=== PATIENT | male | born 1975 | race Caucasian/White ===

== ENCOUNTER → 2018-07-17 | Outpatient (CLI) | payer BC ==
--- NOTE | 2018-07-17 17:10 | CONS ---
CONSULTATION DATE OF SURGERY: 07/17/2018 43-year-old gentleman has been evaluated in [facility] for possible obstructive sleep apnea-hypopnea syndrome. HISTORY OF PRESENT ILLNESS/SLEEP-WAKE EVALUATION: Patient usual sleep schedule on working days from 10:30 or 11:00 p.m. until 5:30 a.m. and on weekend until 6:00 a.m. No problems with falling asleep. No TV in bedroom. The patient sleeps in different positions with his with loud snoring and witnessed episodes of stopped breathing during the sleep. The patient wakes up from sleep around 3 times with nocturia and grinding teeth. In the morning patient wakes up tired, has problem with memory, concentration and irritability. [place] Sleepiness Scale is 4. PAST MEDICAL HISTORY: Positive for seasonal allergies with sometimes some plugging of his nose. PAST SURGICAL HISTORY: Right and left knee surgery. Hernia repair. MEDICATIONS: None at the present time. SOCIAL HISTORY: Negative for smoking. Alcohol consumption occasional. FAMILY HISTORY: Diabetes. REVIEW OF SYSTEMS: Sometimes awakenings from sleep. Episodes of fatigue. PHYSICAL EXAM: GENERAL gentleman without distress. VITAL SIGNS BP 123/75, HR 60, RR 16, height 6 foot 0, weight 206, BMI 27.9, temp 97.8. Oxygen saturation on room air 97.6% HEENT PERRLA, EOMI, evaluation of oropharynx showed low position of soft palate, slight restriction of nasal breathing bilaterally. Neck 15-3/4 inches in circumference. NECK Supple, no JVD. Thyroid is not palpable. LUNGS Clear to percussion and to auscultation. Good air exchange. No wheezing or rhonchi. HEART S1, S2 regular. No murmurs, gallops, or rubs. ABDOMEN Soft and nontender. Bowel sounds are present. No organomegaly appreciated. EXTREMITIES No clubbing or cyanosis. 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 Cranial nerves 2 to 7 intact. There is no fasciculation or atrophy. noted. No focal deficits observed. IMPRESSION: 1. Snoring, witnessed episodes of stopped breathing during the sleep, low position of soft palate, obstructive sleep apnea-hypopnea syndrome. 2. Status post right knee surgery. 3. Status post left knee surgery. 4. Status post hernia repair. 5. History of seasonal allergies. 6. Some restriction of nasal breathing. PLAN: 1. Sleep study for evaluation of patient breathing during the sleep. 2. Treatment with CPAP, if necessary CPAP titration if sleep study will be positive for obstructive sleep apnea-hypopnea syndrome. 3. Preferable position during sleep on the side. 4. No driving if patient feels any sleepiness. 5. I will see patient for follow up visit to explain results of testing and following plan. Thank you very much for referring this patient for consultation. Sincerely, Marek Grimm MD, PhD, FAASM Diplomat of [employer] Assistant Softball Coach of [facility] [place] MMODL / IJN: [id number] /
== END | disposition home or self-care (01) ==
LOC: SLEEP 16:15
PROVIDERS: ATTEND Internal Medicine
DX: G47.33 Obstructive sleep apnea (adult) (pediatric) (principal); M27.8 Other specified diseases of jaws; R35.1 Nocturia; Z98.890 Other specified postprocedural states; Z91.048 Other nonmedicinal substance allergy status
CPT/HCPCS: 99211

== ENCOUNTER → 2022-01-31 | Outpatient (CLI) | payer BC ==
--- NOTE | 2022-01-31 17:37 | CONS ---
CONSULTATION DATE OF SERVICE: 01/31/2022 This 46-year-old gentleman has been evaluated in Sleep Center for obstructive sleep apnea-hypopnea syndrome. HISTORY OF PRESENT ILLNESS/SLEEP-WAKE EVALUATION: I saw this patient in 2018. At that time we did a home sleep apnea test, and the test showed moderate obstructive sleep apnea-hypopnea syndrome. Then patient was started on treatment with CPAP but was not able to use CPAP equipment. At that time he used a full- face mask. He returned his CPAP unit because he did not use it. He did not come for a follow-up visit at that time, either. If he had come, we might possibly have been able to make some corrections and make it more comfortable for the patient. At present, his sleep schedule on weekdays is from 9:30 p.m. until 5 or 5:30 a.m. and on weekends from 10 p.m. to 6 or 6:30 a.m. No problems with falling asleep. No TV in bedroom. He sleeps in different positions. He snores, has episodes of stopped breathing during sleep. He wakes up from sleep twice with nocturia, grinding teeth, dry mouth. No history of hypnagogic hallucinations, sleep paralysis or cataplexy. In the morning the patient wakes up tired, has difficulties paying attention, has problems with memory, concentration, irritability. [place] Sleepiness Scale is 8. Usually he does not take any naps. PAST MEDICAL HISTORY: Positive for seasonal allergies. PAST SURGICAL HISTORY: Right knee replacement, left knee replacement. MEDICATIONS: None. SOCIAL HISTORY: Negative for smoking. Alcohol consumption occasional. FAMILY HISTORY: Hypertension, acid reflux, diabetes, snoring. REVIEW OF SYSTEMS: Snoring, episodes of stopped breathing during sleep, multiple awakenings from sleep. No fevers. No double vision. No recent chest pain. No shortness of breath. No abdominal pain. No bleeding episodes. No blood in the urine. No seizure episodes. PHYSICAL EXAMINATION: GENERAL: Pleasant gentleman without distress. VITAL SIGNS: BP 130/85, HR 69, height 6 feet 3/4 inch, weight 218.2 pounds, body mass index 28.9, temperature 97.3, oxygen saturation at room air 96%. HEENT: PERRLA, EOMI, evaluation of oropharynx showed tongue protrudes midline. Low position of soft palate; Mallampati III. NECK: Supple, no JVD. Thyroid is not palpable. Neck is 16-3/4 inches in circumference. LUNGS: Clear to percussion and to auscultation. Good air exchange. No wheezing or rhonchi. HEART: S1, S2 regular. No murmurs, gallops, or rubs. ABDOMEN: Soft and nontender. Bowel sounds are present. No organomegaly appreciated. EXTREMITIES: No clubbing or cyanosis. 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 Cranial nerves 2 to 7 intact. There is no fasciculation or atrophy. noted. No focal deficits observed. IMPRESSION: 1. Snoring, episodes of stopped breathing during sleep, low position of soft palate, Mallampati III, wide neck, 16-3/4 inches in circumference, history of obstructive sleep apnea-hypopnea syndrome documented in 2018 in moderate range; obstructive sleep apnea-hypopnea syndrome. 2. Overweight; body mass index 28.9. 3. Seasonal allergies. 4. Status post right knee surgeries. 5. Status post left knee surgery for meniscus repair. 6. Status post hernia surgery. PLAN: 1. Home sleep apnea test for evaluation of patient's breathing during sleep. 2. Sleep hygiene with regular time in bed for at least 7-1/2 to 8 hours. 3. Precautions related to driving. No driving if feeling sleepiness. 4. I will maintain all necessary prescription for PAP supplies including mask, tube, filters. 5. Watching weight. 6. Follow-up visit in 6 months or earlier if patient has any problems. I discussed with the patient that if he needs to start CPAP, we will try to use the nasal pillow mask, and he will start to use it with nasal strips. Thank you very much for referring this patient for consultation. Sincerely, Marek Grimm MD, PhD, FAASM Diplomat of [place] [employer] Sleep [facility] [employer] [place] [employer] Patternmaker [employer] [facility] [place] MMODL / AMYN: [id number] /
== END ==
LOC: SLEEP 11:43
PROVIDERS: ATTEND Internal Medicine
DX: G47.33 Obstructive sleep apnea (adult) (pediatric) (principal); E66.3 Overweight; Z68.28 Body mass index [BMI] 28.0-28.9, adult; J30.2 Other seasonal allergic rhinitis; Z98.890 Other specified postprocedural states
CPT/HCPCS: 99202